=== PATIENT | male | born 1965 | race Caucasian/White ===

== ENCOUNTER 2017-02-21 09:46 | Inpatient (IN) | payer OTHER ==
[~2017-02-21] VITALS: Ht 168 cm; Wt 68.0 kg
--- NOTE | ~2017-02-21 | O ---
[place], [place] OPERATIVE NOTE NAME: LEO BERNAL UNIT #: [id number] ROOM: 529 DOCTOR: JENNI KEN MD BIRTHDATE: [birth year] DOS: HISTORY OF PRESENT ILLNESS: A 52-year-old patient who has presented with chief complaint of epigastric distress, abdominal pain. The patient with history of consumption of large volume of alcohol daily. The patient with repeated admission with epigastric abdominal pain, alcohol detox. Consultation has been dictated in details. His latest labs and records have been reviewed. His latest H and H is 13 and 41, platelet count of 164. Comprehensive metabolic panel, GFR greater than 60. Liver function test with elevation of ALT of 245, AST of 142. PROCEDURE: Today's procedure part of investigation is panendoscopy plus biopsy. PREMEDICATION: Versed and Diprivan. SCOPE: Olympus forward-viewing gastroscope Q10 video. REPORT: After putting the patient in the left lateral position and after application of lubricant to the scope, the scope was introduced. Thereafter, under direct visualization, I advanced through the length of esophagus without difficulty. Esophagus cervicothoracic distally carefully examined. Distal esophagitis was noticed. Gastric pouch was entered. Gastritis identified, minimal erosions in antrum was seen. Duodenal bulb, second and third part within normal limit. The patient was gradually extubated after biopsied and tolerated procedure well. IMPRESSION: Distal esophagitis, gastritis, mild erosions. PLAN AND DISCUSSION: Protonix 40 mg every day. The patient advised to abstain from alcohol intake. I doubt if he is going to be responsive to the advice is initial studies have been reassessed compared with latest studies. Alcohol level was 360 initially, he has been undergoing detox and his lipase was at all time 156 and around that no pancreatitis noticed. [place], [place] OPERATIVE NOTE NAME: LEO BERNAL UNIT #: [id number] ROOM: 529 DOCTOR: JENNI KEN MD BIRTHDATE: [birth year] JENNI KEN MD CM:OPRECORD:OPERATIVE NOTE [id number] JENNI KEN MD 02/27/17 1501 interface
--- NOTE | ~2017-02-21 | CON ---
[place], [place] REPORT OF CONSULTATION [id number] UNIT #: [id number] ROOM: 529 DOCTOR: SUELLEN JOESTEPHENKEN BIRTHDATE: [birth year] DOS: 02/24/2017 HISTORY OF PRESENT ILLNESS: A 52 years old patient who has presented with recurrent admission for alcohol intoxication and rehabilitation. The patient has been complaining now during this course of detox from epigastric pain. The patient usually drinks about one fifth of a gin per day for multi years. PAST MEDICAL HISTORY: Bipolar disorder, hypertension, hypothyroidism, mitral insufficiency, congestive heart failure, depression, pancreatitis. PAST SURGICAL HISTORY: Cholecystectomy. SOCIAL HISTORY: Heavy alcohol consumption as identified above, nonsmoker. FAMILY HISTORY: Noncontributory. ALLERGIES: No known medication. REVIEW OF SYSTEMS: In general, HEENT: Denies double vision, blurred sports. RESPIRATORY: Denies shortness of breath. CARDIOVASCULAR: Denies chest pain. DIGESTIVE SYSTEM: Epigastric pain. PHYSICAL EXAMINATION: VITAL SIGNS: Stable. HEENT: Head normocephalic, nontraumatic. Mouth and buccal mucosa benign. NECK: Supple, no thyromegaly. CHEST: Symmetric anatomy, equal expansion. No wheeze, no rhonchi. HEART: Normal sinus rhythm, no gallop, no murmur. ABDOMEN: Soft, no hepato-organomegaly. Nonspecific epigastric pain. EXTREMITIES: No cyanosis, no pedal edema. NEUROLOGIC: Alert, oriented to time, place and person. LABORATORY DATA: Reviewed. Records reviewed. Initial CBC, H and H of 13 and 42. White blood cells 8. His indices are microcytic rather. No evidence of thrombocytopenia with platelet of 200 plus. Lactic acid 2.8. Chest x-ray was no acute process. His comprehensive metabolic panel, GFR greater than 60. Liver function test expectedly, abnormal GOT and GPT of 79 and 82, alkaline phosphatase 180. Alcohol level was 360. His CBC differential remains unaffected. Vitamin D 48. Lactic acid normalized. PLAN AND DISCUSSION: As far as his epigastric distress is concerned, we are going to keep him on Protonix 40 mg q. day. He requires more rehab, detox and supportive management otherwise. He remains to be a hardcore alcohol dependent patient with multiple failure in rehabs and detox care. OTHER ADJUNCTIVE DIAGNOSES: As outlined. Past medical and surgical history showed his symptomatology of epigastric pain [place], [place] REPORT OF CONSULTATION NAME: LEO BERNAL UNIT #: [id number] ROOM: 529 DOCTOR: JENNI KEN MD BIRTHDATE: [birth year] just continues. We will organize an EGD as outpatient. JENNI KEN MD CM:CONSTR:REPORT OF CONSULTATION 25 02/25/172025 interface
[~2017-02-21 09:46] MED LIST: AMLODIPINE BES2.5 MG PO; AMLODIPINE BESYL5 MG PO; ATARAX,VISTARIL50 MG PO; ATIVAN1 MG PO; AZO-SULFISOXAZO1 TA1 PO; B COMPLEX1 EACH PO; CALCIUM CARBON500 M1 PO; CEFTRIAXONE1 GM IJ; CHLORDIAZEPOXID10 M2 PO; CHLORDIAZEPOXID25 M1 PO; CHLORDIAZEPOXID25 MG PO; Carafate1 GM PO; GOOD NEIGHBOR150 MG PO; KROGER NIC21 MG/24 H T; LIBRIUM5 MG PO; LISINOPRIL10 M1 PO; LITHATE5 M1 PO; LITHIUM CARB300 MG PO; LITHIUM CARBON300 M1 PO; LITHIUM CARBON300 MG PO; LITHIUM CARBON450 M1 PO; LITHIUM CARBON600 MG PO; LORAZEPAM0.5 MG PO; METHOCARBAMOL750 M1 PO; METOPROLOL SUCC25 M2 PO; MIRTAZAPINE15 M2 PO; NATURE'S BLEND F1 MG PO; NORVASC2.5 MG PO; OMEPRAZOLE D/R20 MG PO; OMEPRAZOLE40 MG PO; ONDANSETRON HYDR4 MG PO; PANTOPRAZOLE SO40 MG PO; SEROQUEL XR300 MG PO; SEROQUEL XR400 MG PO; SEROQUEL25 MG PO; SEROQUEL400 M1 PO; SYNTHROID25 MCG PO; TEMAZEPAM30 MG PO; THERA TABS1 TAB PO; THIAMINE HY100 MG/ML IM; VALIUM10 MG PO; VITAMIN B-11 TAB PO; ZOFRAN 4 MG ED2 TAB PO; Zofran4 MG PO
[2017-02-21 09:55] VITALS: BP 172/100
[2017-02-21 10:15] LABS: BASO # 0.1 10*3/uL (0.0-0.1); EOS # 0.8 10*3/uL (0.0-0.4); EOS % 9.3 % (1.0-4.0); HEMATOCRIT 42.2 % (42.0-52.0); HEMOGLOBIN 13.5 g/dl (14.0-18.0); LYMPH # 1.2 10*3/uL (1.3-4.4); LYMPH % 14.2 % (27.0-41.0); MEAN CELL VOLUME 80.5 fl (80.0-94.0); MEAN CORPUSCULAR HGB 25.8 pg (27.0-31.0); MEAN PLATELET VOLUME 8.7 fl (9.6-12.3); MONO # 0.5 10*3/uL (0.1-1.0); MONO % 5.5 % (3.0-9.0); NEUT # 6.1 10*3/uL (2.3-7.9); NEUT % 69.7 % (47.0-73.0); PLATELET COUNT AUTOMATED 202 10*3/uL (130-400); RED BLOOD COUNT 5.24 10*6/uL (4.50-5.90); RED CELL DISTRI WIDTH 24.3 % (0-14.5); WHITE BLOOD COUNT 8.7 10*3/uL (4.8-10.8)
[2017-02-21 10:24] LABS: PROTHROMBIN TIME 10.7 SECONDS (9.0-12.4)
[2017-02-21 10:26] VITALS: BP 135/87
[2017-02-21 10:32] LABS: ALBUMIN 3.9 gm/dl (3.1-4.5); ALKALINE PHOSPHATASE 150 U/L (45-117); BILIRUBIN, TOTAL 0.3 mg/dl (0.2-1.0); BUN 13 mg/dl (7-24); CARBON DIOXIDE 26 mmol/L (21-32); CHLORIDE 107 mmol/L (98-107); CPK 170 U/L (39-308); EST GLOM FILT AFRICAN AMERICAN > 60 ml/min; GLUCOSE 97 mg/dL (65-99); MAGNESIUM 2.4 mg/dL (1.5-2.1); SGOT/AST 79 IU/L (3-35); SGPT/ALT 82 U/L (12-78); SODIUM 144 mmol/L (136-145)
[2017-02-21 10:34] LABS: CKMB 1.3 ng/ml (0.5-3.6)
[2017-02-21 10:35] LABS: C-REACTIVE PROTEIN < 0.29 MG/DL (0-0.3); TROPONIN I < 0.015 ng/ml (<0.045)
[2017-02-21 11:00] VITALS: BP 136/91
[2017-02-21 12:12] LABS: LA>2 REFLEX 2 HR DRAW NOW
[2017-02-21 14:26] LABS: LA>2 REFLEX 4 HR DRAW NOW
[2017-02-21 16:00] VITALS: BP 135/87
[2017-02-21] MEDS ORDERED: PHARMASSURE VI500 MG PO (17:57)
[2017-02-21] MEDS ORDERED: FEROSUL325 MG PO (17:57)
[2017-02-21] MEDS ORDERED: PANTOPRAZOLE SO40 MG PO (17:58)
[2017-02-21] MEDS ORDERED: SENEXON-S 50 MG1 TAB PO (17:58)
[2017-02-21] MEDS ORDERED: MULTI-VITAMINS1 TA1 PO (17:58)
[2017-02-21] MEDS ORDERED: VITAMIN D50000 I3 PO (17:59)
[2017-02-21] MEDS ORDERED: QUETIAPINE FUM400 M2 PO (18:00)
[2017-02-21] MEDS ORDERED: Carafate1 GM PO (18:14)
[2017-02-21 20:00] VITALS: BP 134/66
[2017-02-22] VITALS (7 sets, daily range): BP systolic 133–165; BP diastolic 50–97
[2017-02-23] VITALS (7 sets, daily range): BP systolic 142–165; BP diastolic 81–103
[2017-02-24] VITALS: BP 146/92
[2017-02-24 07:09] LABS: BASO # 0.1 10*3/uL (0.0-0.1); EOS # 0.8 10*3/uL (0.0-0.4); EOS % 13.1 % (1.0-4.0); HEMATOCRIT 43.1 % (42.0-52.0); LYMPH # 1.4 10*3/uL (1.3-4.4); LYMPH % 23.9 % (27.0-41.0); MEAN CELL VOLUME 80.4 fl (80.0-94.0); MEAN CORPUSCULAR HGB 26.1 pg (27.0-31.0); MEAN CORPUSCULAR HGB CONC 32.5 g/dl (33.0-37.0); MEAN PLATELET VOLUME 9.3 fl (9.6-12.3); MONO # 0.5 10*3/uL (0.1-1.0); MONO % 8.7 % (3.0-9.0); NEUT # 3.1 10*3/uL (2.3-7.9); PLATELET COUNT AUTOMATED 173 10*3/uL (130-400); RED BLOOD COUNT 5.36 10*6/uL (4.50-5.90); WHITE BLOOD COUNT 5.9 10*3/uL (4.8-10.8)
[2017-02-24 07:37] LABS: EST GLOM FILT AFRICAN AMERICAN > 60 ml/min
[2017-02-24 08:00] VITALS: BP 140/95
[2017-02-24 09:53] VITALS: BP 140/86
[2017-02-24 12:00] VITALS: BP 149/93
[2017-02-24 15:54] LABS: BILIRUBIN NEGATIVE (NEGATIVE); BLOOD NEGATIVE (NEGATIVE); CLARITY CLEAR (CLEAR); COLOR YELLOW (YELLOW); GLUCOSE NEGATIVE (NEGATIVE); KETONE NEGATIVE (NEGATIVE); LEUKO ESTERASE NEGATIVE (NEGATIVE); NITRITE NEGATIVE (NEGATIVE); PH 5.5 (5.0-9.0); PROTEIN NEGATIVE (NEGATIVE); SPECIFIC GRAVITY <= 1.005 (1.005-1.030); UROBILINOGEN 0.2 E.U./dl (0.2-1.0)
[2017-02-24 16:00] VITALS: BP 145/89
[2017-02-24 16:12] LABS: BACTERIA TRACE; URINE REFLEX COMMENT NO (NO); WBC 0-2 wbc/hpf (0-5)
[2017-02-24 20:00] VITALS: BP 156/89
[2017-02-25] VITALS: BP 141/89
[2017-02-25 06:08] LABS: ALBUMIN 3.7 gm/dl (3.1-4.5); BILIRUBIN, TOTAL 0.3 mg/dl (0.2-1.0); BUN 22 mg/dl (7-24); CARBON DIOXIDE 25 mmol/L (21-32); CHLORIDE 103 mmol/L (98-107); EST GLOM FILT AFRICAN AMERICAN > 60 ml/min; GLUCOSE 127 mg/dL (65-99); MAGNESIUM 2.4 mg/dL (1.5-2.1); POTASSIUM 4.2 mmol/L (3.5-5.1); SGOT/AST 107 IU/L (3-35); SGPT/ALT 137 U/L (12-78); SODIUM 139 mmol/L (136-145); TOTAL PROTEIN 7.8 gm/dL (6.4-8.2)
[2017-02-25 06:09] LABS: ALKALINE PHOSPHATASE 140 U/L (45-117)
[2017-02-25 06:10] LABS: HEMATOCRIT 44.6 % (42.0-52.0); HEMOGLOBIN 14.3 g/dl (14.0-18.0); MEAN CORPUSCULAR HGB 26.3 pg (27.0-31.0); MEAN CORPUSCULAR HGB CONC 32.1 g/dl (33.0-37.0); MEAN PLATELET VOLUME 9.6 fl (9.6-12.3); PLATELET COUNT AUTOMATED 187 10*3/uL (130-400); RED BLOOD COUNT 5.44 10*6/uL (4.50-5.90)
[2017-02-25 07:12] LABS: EOSINOPHIL # 0.4 10*3/uL (0-0.4); EOSINOPHILS 6 % (1-4); LYMPHOCYTE # 1.5 10*3/uL (1.3-4.4); MONOCYTE # 0.8 10*3/uL (0.1-1.0); NEUTROPHIL # 4.3 10*3/uL (2.3-7.9); NEUTROPHILS 62 % (47-73); TOTAL CELLS COUNTED 100 #CELLS
[2017-02-25 07:13] LABS: PLATELET SUFFICIENCY NORMAL (NORMAL); POLYCHROMASIA SLIGHT
[2017-02-25 08:00] VITALS: BP 128/86
[2017-02-25 12:00] VITALS: BP 142/92
[2017-02-25 14:00] VITALS: BP 142/92
[2017-02-25 16:00] VITALS: BP 126/83
[2017-02-25 20:00] VITALS: BP 136/78
[2017-02-26 00:17] VITALS: BP 127/87
[2017-02-26 06:59] LABS: HEMATOCRIT 43.9 % (42.0-52.0); MEAN CELL VOLUME 81.9 fl (80.0-94.0); MEAN CORPUSCULAR HGB 26.1 pg (27.0-31.0); MEAN CORPUSCULAR HGB CONC 31.9 g/dl (33.0-37.0); MEAN PLATELET VOLUME 9.2 fl (9.6-12.3); PLATELET COUNT AUTOMATED 169 10*3/uL (130-400); RED BLOOD COUNT 5.36 10*6/uL (4.50-5.90); WHITE BLOOD COUNT 6.4 10*3/uL (4.8-10.8)
[2017-02-26 07:13] LABS: ALBUMIN 3.4 gm/dl (3.1-4.5); ALKALINE PHOSPHATASE 121 U/L (45-117); BILIRUBIN, TOTAL 0.3 mg/dl (0.2-1.0); BUN 21 mg/dl (7-24); C-REACTIVE PROTEIN < 0.29 MG/DL (0-0.3); CARBON DIOXIDE 20 mmol/L (21-32); CHLORIDE 108 mmol/L (98-107); EST GLOM FILT AFRICAN AMERICAN > 60 ml/min; GLUCOSE 118 mg/dL (65-99); MAGNESIUM 2.4 mg/dL (1.5-2.1); POTASSIUM 4.5 mmol/L (3.5-5.1); SGOT/AST 144 IU/L (3-35); SGPT/ALT 217 U/L (12-78); SODIUM 138 mmol/L (136-145); TOTAL PROTEIN 7.2 gm/dL (6.4-8.2)
[2017-02-26 07:22] LABS: BASOPHIL # 0.1 10*3/uL (0-0.1); BASOPHILS 1 % (0-1); EOSINOPHIL # 0.4 10*3/uL (0-0.4); EOSINOPHILS 7 % (1-4); LYMPHOCYTE # 1.2 10*3/uL (1.3-4.4); MONOCYTE # 0.4 10*3/uL (0.1-1.0); NEUTROPHIL # 4.2 10*3/uL (2.3-7.9); NEUTROPHILS 66 % (47-73); TOTAL CELLS COUNTED 100 #CELLS
[2017-02-26 07:24] LABS: PLATELET SUFFICIENCY NORMAL (NORMAL); POLYCHROMASIA SLIGHT
[2017-02-26 08:00] VITALS: BP 123/76
[2017-02-26 12:00] VITALS: BP 130/77
[2017-02-26 16:00] VITALS: BP 129/84
[2017-02-26 20:00] VITALS: BP 127/82
[2017-02-26] MEDS ORDERED: QUETIAPINE FUM100 M3 PO (22:12)
[2017-02-27] VITALS (8 sets, daily range): BP systolic 98–140; BP diastolic 62–78
[2017-02-27 07:13] LABS: HEMATOCRIT 41.5 % (42.0-52.0); HEMOGLOBIN 13.3 g/dl (14.0-18.0); MEAN CORPUSCULAR HGB 26.6 pg (27.0-31.0); MEAN PLATELET VOLUME 9.4 fl (9.6-12.3); PLATELET COUNT AUTOMATED 164 10*3/uL (130-400); WHITE BLOOD COUNT 5.5 10*3/uL (4.8-10.8)
[2017-02-27 07:34] LABS: ALBUMIN 3.6 gm/dl (3.1-4.5); ALKALINE PHOSPHATASE 112 U/L (45-117); BILIRUBIN, TOTAL 0.2 mg/dl (0.2-1.0); BUN 19 mg/dl (7-24); CARBON DIOXIDE 24 mmol/L (21-32); CHLORIDE 110 mmol/L (98-107); EST GLOM FILT AFRICAN AMERICAN > 60 ml/min; GLUCOSE 96 mg/dL (65-99); MAGNESIUM 2.6 mg/dL (1.5-2.1); POTASSIUM 4.3 mmol/L (3.5-5.1); SGOT/AST 142 IU/L (3-35); SGPT/ALT 245 U/L (12-78); SODIUM 143 mmol/L (136-145); TOTAL PROTEIN 7.1 gm/dL (6.4-8.2)
[2017-02-27 08:06] LABS: BASOPHIL # 0.1 10*3/uL (0-0.1); BASOPHILS 2 % (0-1); EOSINOPHIL # 0.2 10*3/uL (0-0.4); EOSINOPHILS 4 % (1-4); LYMPHOCYTE # 1.3 10*3/uL (1.3-4.4); MONOCYTE # 0.5 10*3/uL (0.1-1.0); NEUTROPHIL # 3.4 10*3/uL (2.3-7.9); NEUTROPHILS 61 % (47-73); PLATELET SUFFICIENCY NORMAL (NORMAL); TOTAL CELLS COUNTED 100 #CELLS
[2017-02-28] VITALS: BP 121/67
[2017-02-28 08:00] VITALS: BP 135/81
[2017-02-28 12:00] VITALS: BP 140/80
[2017-02-28] MEDS ORDERED: D-1000 185 MG-11 TAB PO (14:57)
[2017-02-28] MEDS ORDERED: DICYCLOMINE HCL20 MG PO (14:57)
[2017-02-28] MEDS ORDERED: LORAZEPAM1 MG PO (14:57)
[2017-02-28] MEDS ORDERED: METHOCARBAMOL750 M1 PO (14:57)
[2017-02-28] MEDS ORDERED: ATARAX,VISTARIL50 MG PO (14:57)
[2017-02-28] MEDS ORDERED: LISINOPRIL10 M1 PO (14:57)
[2017-02-28 16:00] VITALS: BP 124/83
== END 2017-02-28 17:17 | disposition home or self-care (01) | DRG 897 ==
LOC: ED 09:46 → ICCU 10:07 → 5E 10:07 → EDHOLD 10:07 → ICCU 10:18 → 5E 02-22 13:51 → EDHOLD 02-23 14:58 → 5E 02-23 14:59
PROVIDERS: Emergency Medicine; Internal Medicine Hospice and Palliative Medicine
PROC: 0DB68ZX Excision of Stomach, Via Natural or Artificial Opening Endoscopic, Diagnostic (ICD-10-PCS; principal; 2017-02-27)
DX: F10.239 Alcohol dependence with withdrawal, unspecified (principal); E87.2 Acidosis; I11.0 Hypertensive heart disease with heart failure; R65.10 Systemic inflammatory response syndrome (SIRS) of non-infectious origin without acute organ dysfunction; I50.32 Chronic diastolic (congestive) heart failure; K86.1 Other chronic pancreatitis; F10.220 Alcohol dependence with intoxication, uncomplicated; D64.9 Anemia, unspecified; F31.9 Bipolar disorder, unspecified; E03.9 Hypothyroidism, unspecified; E83.41 Hypermagnesemia; K76.0 Fatty (change of) liver, not elsewhere classified; K42.9 Umbilical hernia without obstruction or gangrene; K40.90 Unilateral inguinal hernia, without obstruction or gangrene, not specified as recurrent; K21.0 Gastro-esophageal reflux disease with esophagitis; K29.70 Gastritis, unspecified, without bleeding; Z90.49 Acquired absence of other specified parts of digestive tract; Z82.49 Family history of ischemic heart disease and other diseases of the circulatory system